=== PATIENT | female | born 1985 | race Caucasian/White ===

== ENCOUNTER 2017-06-20 13:00 | Emergency (ER) | payer BC, OTHER ==
[2017-06-20 14:54] VITALS: BP 106/61
--- NOTE | 2017-06-20 15:18 | UC ---
Respiratory Complaint HPI - HPI Summary HPI Summary: C/O cough for a couple of days. Exposed to a coworker with pertussis. Congestion without sinus pain or earache. Sorethroat with sneezing and watery eyes. - History of Current Complaint Chief Complaint: UCGeneralIllness Stated Complaint: STUFFY NOSE/COUGH Time Seen by Provider: 06/20/17 15:13 Hx Obtained From: Patient Hx Last Menstrual Period: 06/02/17 ?: No Onset/Duration: Sudden Onset, Lasting Days - 4, Worse Since - the onset Timing: Constant Severity Initially: Mild Severity Currently: Moderate Character: Cough: Productive - light mucus Alleviating Factors: Nothing Associated Signs And Symptoms: Positive: URI, Nasal Congestion, Hoarseness. Negative: Dyspnea, Pleuritic Chest Pain, Wheezing, Hemoptysis, Sinus Discomfort Related History: Seasonal Allergies - Risk Factors Cardiac Risk Factors: Negative - Allergies/Home Medications Allergies/Adverse Reactions: Allergies Allergy/AdvReac Type Severity Reaction Status Date / Time No Known Allergies Allergy Verified 06/20/17 14:49 Home Medications: Home Medications SUMAtriptan TAB* [Imitrex TAB*] 1 tab TID PRN 06/20/17 [History Confirmed ] PMH/Surg Hx/FS Hx/Imm Hx Previously Healthy: Yes - Surgical History Surgical History: None - Family History Known Family History: Negative: Cardiac Disease, Hypertension, Diabetes - Social History Occupation: Employed Full-time Lives: With Family Alcohol Use: Weekly Substance Use Type: None Smoking Status (MU): Never Smoked Tobacco Have You Smoked in the Last Year: No - Immunization History Most Recent Influenza Vaccination: 2017 Review of Systems Constitutional: Fatigue ENT: Sore Throat, Nasal Discharge Respiratory: Cough Is Patient Immunocompromised?: No All Other Systems Reviewed And Are Negative: Yes Physical Exam Triage Information Reviewed: Yes Appearance: No Pain Distress, Well-Nourished, Ill-Appearing - mild Vital Signs: Initial Vital Signs Temp 99 F 06/20/17 14:49 Pulse 91 06/20/17 14:49 Resp 16 06/20/17 14:49 BP 106/61 06/20/17 14:49 Pulse Ox 100 06/20/17 14:49 Vital Signs Reviewed: Yes Eyes: Positive: Conjunctiva Clear ENT: Positive: Pharynx normal, Nasal congestion, TMs normal Neck exam: Normal Respiratory: Positive: Lungs clear, Wheezing - expiratory wheeze with cough Cardiovascular Exam: Normal Musculoskeletal Exam: Normal Neurological Exam: Normal Psychological Exam: Normal Skin Exam: Normal UC Diagnostic Evaluation - Laboratory O2 Sat by Pulse Oximetry: 100 Respiratory Course/Dx - Differential Dx/Diagnosis Differential Diagnosis/HQI/PQRI: Asthma, Lower Resp Infection, Sinusitis Provider Diagnoses: Acute URI. Acute bronchospasm Discharge - Discharge Plan Condition: Stable Disposition: HOME Prescriptions: predniSONE TAB* [Deltasone TAB*] 20 mg PO DAILY #18 tab Patient Education Materials: Upper Respiratory Infection (ED), Bronchospasm (ED ), Prednisone (By mouth) Referrals: Autumn Pollack MD [Primary Care Provider] -
== END 2017-06-20 15:36 | disposition home or self-care (01) ==
LOC: UCCORT 13:00
DX: J06.9 Acute upper respiratory infection, unspecified (principal); J98.01 Acute bronchospasm
CPT/HCPCS: 87798; 99212; G0463